=== PATIENT | male | born 1985 | race Caucasian/White ===

== ENCOUNTER 2018-03-25 12:00 | Outpatient (CLI) | payer OTHER ==
[~2018-03-25] VITALS: Ht 185.4 cm; Wt 129.3 kg
[~2018-03-25 12:00] MED LIST: LSNP10T
[2018-03-25] MEDS ORDERED: FEXO1TAB43 PO (12:06)
[2018-03-25] MEDS ORDERED: FLUT9.9S NSEACH (12:06)
[2018-03-25] MEDS ORDERED: LISI-552 PO (12:06)
== END 2018-03-25 14:00 | disposition home or self-care (01) ==
LOC: PREOP 12:00
PROVIDERS: ATTEND Surgery
DX: Z01.818 Encounter for other preprocedural examination (principal)

== ENCOUNTER 2018-03-30 11:46 | Day surgery (SDC) | payer OTHER ==
[~2018-03-30] VITALS: Ht 185.4 cm; Wt 129.3 kg
[~2018-03-30 11:46] MED LIST changes: +FEXO1TAB43 PO; +FLUT9.9S NSEACH; +LISI-552 PO
--- OUTSIDE RECORDS SUMMARY | 2018-03-30 11:51 | XMS REPORT ---
Author Author MATY CARABALLO Organization [facility] Address [address] [place] [address] Care Team Providers Care Tobacco Flavorer Name Role Phone MATY CARABALLO Unavailable PROBLEMS Type Condition ICD9-CM Code ZVX08-LK Code Onset Dates Condition Status SNOMED Code Problem Seasonal allergic rhinitis due to pollen J30.1 Active 17051037 Problem Primary hypertension I10 Active [id number] ALLERGIES No Known Allergies ENCOUNTERS Encounter Location Date Diagnosis [facility] [id number] [place] [phone] Feb, Rectal bleeding K62.5 ; Primary hypertension I10 and Seasonal allergic rhinitis due to pollen J30.1 [facility] [id number] [place] [phone] Mar, [facility] [id number] [place] [phone] Jun, IMMUNIZATIONS No Known Immunizations SOCIAL HISTORY Never Assessed REASON FOR VISIT Rectal bleeding-CAMI bolaños, had surgery and was prescribe some medicine and have been having bleeding from the rectum since then., every since his surery his blood pressure has been high PLAN OF CARE Activity Details Follow Up prn Reason: VITAL SIGNS Height 6 ft 2 in in 2018-03-05 Weight 288.6 lbs 2018-03-05 Temperature 98.2 degrees Fahrenheit 2018-03-05 Heart Rate 82 bpm 2018-03-05 Respiratory Rate 18 2018-03-05 Oximetry on room air:97 % 2018-03-05 BMI 37.05 kg/m2 2018-03-05 Blood pressure systolic 122 mmHg 2018-03-05 Blood pressure diastolic 102 mmHg 2018-03-05 MEDICATIONS Medication Instructions Dosage Frequency Start Date End Date Duration Status Proctofoam HC 1-1 % Rectal Four times a day 1 application as needed 6h Feb, Mar, 30 days Active Lisinopril 20 MG Orally Once a day 1 tablet 24h 30 day(s) Active Fexofenadine-Pseudoephed ER 60-120 MG Orally Twice a day 1 tablet as needed 12h 13 Feb, 2018 12 May, 2018 30 days Active RESULTS Name Result Date Reference Range HEMOGLOBIN (IN HOUSE) 2018-03-05 HEMOGLOBIN 16.7 11.5 - 16 gm/dL Lot # [id number] Exp date 08/07/2018 PROCEDURES Procedure Date Ordered Result Body Site HEMOGLOBIN Mar 05, 2018 INSTRUCTIONS MEDICATIONS ADMINISTERED No Known Medications MEDICAL (GENERAL) HISTORY Type Description Date Medical History shoulder surgery both Surgical History both shoulder 2017 Hospitalization History dot
[2018-03-30] MEDS ORDERED: LACTATED RINGERS 1,000 ML IV STA (11:53)
[2018-03-30 12:00] VITALS: BP 134/92
--- NOTE | 2018-03-30 12:21 | Progress Note-Pre Operative ---
Pre-Operative Progress Note H&P Reviewed The H&P was reviewed, patient examined and no changes noted. Time Seen by Provider: 12:16 Date H&P Reviewed: Mar 30, 2018 Time H&P Reviewed: 12:18 Pre-Operative Diagnosis: Rectal Bleed DELFINO ACEVES DO Mar 30, 2018 12:21
[2018-03-30] MEDS ORDERED: PROPOFOL INJECTION 0 ML IV ONE (12:34)
[2018-03-30] MEDS ORDERED: MIDAZOLAM 5 MG/5 ML (VERSED) VIAL ONE (12:34)
[2018-03-30] MEDS ORDERED: ONDANSETRON 4 MG/2 ML (SDV) Z0FRAN ONE (12:42)
[2018-03-30] MEDS ORDERED: FAMOTIDINE 20MG/2ML IV (PEPCID) ONE (12:42)
[2018-03-30] MEDS ORDERED: proPOfol 200 MG/20 ML (DIPRIVAN) VIAL IV ONE (13:04)
--- NOTE | 2018-03-30 13:40 | Progress Note-Post Operative ---
Post-Operative Progess Note Surgeon (s)/Driver Guide (s) Surgeon DELFINO ACEVES DO Driver Guide: Jhony Soriano, MS III Pre-Operative Diagnosis Rectal Bleed Post-Operative Diagnosis Same plus Internal Hemorrhoids Procedure & Operative Findings Date of Procedure 03/30/18 Procedure Performed/Findings Colonoscopy Anesthesia Type IV sedation by VENEER REDRIER Estimated Blood Loss Estimated blood loss (mL): none Specimens/Packing Specimens Removed none DELFINO ACEVES DO Mar 30, 2018 13:40
--- NOTE | 2018-03-30 13:42 | Endoscopy Discharge Instruct ---
Endo Procedure/Findings Findings 1.: Internal Hemorrhoids Discharge Instructions - Activity: You might feel a little sleepy until tomorrow. This is due to the medicine you received to relax you. Until tomorrow, you should: NOT drive a car, operate machinery or power tools. NOT drink any alcoholic beverages. NOT make any important decisions or sign importortant papers. Do not return to work until tomorrow, unless otherwise instructed. Resume previous activities tomorrow. Diet: Start by taking liquids. If you tolerate liquids, advance to solid food. Make appt for one week. Notify Physician - If you experience excessive bleeding, unusual abdominal pain, fever, or chest pain, contact your doctor immediately. Follow-Up: - I have received and understand the above instructions and will call my doctor if I have any further questions. Patient Signature Date Nurse Signature Other (Relationship) DELFINO ACEVES DO Mar 30, 2018 13:41
[2018-03-30 14:15] VITALS: BP 127/78
[2018-03-30 14:39] VITALS: BP 124/71
[2018-03-30 14:55] VITALS: BP 124/71
--- NOTE | 2018-03-30 21:13 | OPERATIVE REPORT ---
DATE OF SERVICE: 03/30/2018 PREOPERATIVE DIAGNOSIS: Rectal bleed. POSTOPERATIVE DIAGNOSES: Rectal bleed and internal hemorrhoids. PROCEDURE: Colonoscopy. SURGEON: Sam Colvin DO SPRING BENDER: Jhony Benoit, medical student level 3. ANESTHESIA: IV sedation by the CLINICAL LABORATORY TECHNICIAN. SPECIMENS: None. BLOOD LOSS: None. FLUIDS: Per anesthesia. POSTOPERATIVE CONDITION: Stable. INDICATION FOR PROCEDURE: The patient is a 32-year-old male, who has been having some rectal bleeding and needs a workup. FINDINGS: The patient did have large vein running through the rectum and some internal hemorrhoids. He did not have any fissures, did not see any obvious pathology. PROCEDURE NOTE: After informed consent was obtained, the patient was brought to the endoscopy suite and placed on the bed in left lateral decubitus position. He was administered IV sedation by the CLINICAL LABORATORY TECHNICIAN, who then monitored his vitals the entire time, heart rate, blood pressure, pulse ox and the scope was inserted, pushed all the way about 150 cm, able to get to the cecum. Took a picture of appendiceal orifice, noted the ileocecal valve and then slowly withdrew the scope insufflating to look circumferentially at the tyson looking at the cecum, up the ascending colon to the hepatic flexure, then down the transverse colon to the the splenic flexure, into the descending colon and down in the sigmoid and finally into the rectum. In the rectum, I saw a large vein almost a varicosity, took a picture of this. There was a possibility this has bled before. He also had some grade I to II internal hemorrhoids, took a picture of this and then looked, I did not see any anal fissure, just hemorrhoids, removed the scope. The patient tolerated the procedure and he was recovered in the endoscopy suite. Job ID: [id number] DocumentID: [id number] Dictated Date: 03/30/2018 18:10:25 Alarm Technician Date: 03/30/2018 21:12:19 Dictated By: SAM COLVIN DO
== END 2018-03-30 14:55 | disposition home or self-care (01) ==
LOC: ENDO 11:46
PROVIDERS: ATTEND Surgery
DX: K64.1 Second degree hemorrhoids (principal); K62.5 Hemorrhage of anus and rectum; I10 Essential (primary) hypertension; E66.9 Obesity, unspecified; Z79.899 Other long term (current) drug therapy; Z68.37 Body mass index [BMI] 37.0-37.9, adult

== ENCOUNTER 2018-08-26 16:23 | Emergency (ER) | payer MEDICAID, OTHER ==
[~2018-08-26] VITALS: Ht 185.4 cm; Wt 129.3 kg
[2018-08-26] MEDS ORDERED: CYCL5TAB (16:47)
[2018-08-26] MEDS ORDERED: ASPIRIN 81 MG CHEW (CHILDREN'S ASA) PO ONE (17:30)
--- NOTE | 2018-08-26 17:36 | ED Chest Pain ---
General Chief Complaint: Chest Pain Stated Complaint: CHEST PAIN Nursing Triage Note: AMB TO ROOM WITH C/O CHEST PAIN ONSET LAST NIGHT REPORTS THAT AT [facility] DID NOT FEEL WELL AND WHEN HE WENT TO BED LATER ONSET OF PAIN IN THE MIDDLE OF CHEST LASTED 1 HR. Nursing Sepsis Screen: No Definite Risk Source: patient Exam Limitations: no limitations History of Present Illness Date Seen by Provider: Aug 26, 2018 Time Seen by Provider: 17:15 Initial Comments Here with onset of central chest discomfort and tightness last night. Lasted for a few hours and was associated with fast heartbeat and elevated blood pressure. That resolved at about 2 AM and has been resolved today. He followed up with his doctor as he is had some medication changes recently. His doctor was not evidence of the seventh to the quick care clinic at the [facility]. On telling the story, they sent him here for evaluation related to chest pain. He has not had any chest pain or discomfort since 2 AM and has had no other problems. Patient did have upper respiratory infection last week that has subsequently resolved. Timing/Duration: 1-3 hours, gone now Severity/Quality: tightness Location: central Radiation: no radiation Activities at Onset: rest, sleep Prior CP/Workup: no prior cardiac workup ASA po JOINTER MACHINE: No NTG SL JOINTER MACHINE: No Associated Symptoms: No back pain, No fever/chills; shortness of breath; No weakness Allergies and Home Medications Allergies Coded Allergies: No Known Drug Allergies (Verified , 03/30/18) Home Medications Fexofenadine/Pseudoephedrine 1 Each Tab.er.24h, 1 EACH PO DAILY, (Reported) Fluticasone Propionate 9.9 Ml Anderson.susp, 1 SPRAY NSEACH DAILY, (Reported) 1 SPRAY EACH NARE DAILY Lisinopril 20 Mg Tablet, 20 MG PO DAILY, (Reported) Patient Home Medication List Home Medication List Reviewed: Yes Review of Systems Review of Systems Constitutional: see HPI; No chills, No fever EENTM: No Symptoms Reported Respiratory: See HPI, Shortness of Air; Denies Wheezing Cardiovascular: Denies Chest Pain; Palpitations Gastrointestinal: Denies Abdominal Pain, Denies Diarrhea, Denies Nausea, Denies Vomiting Genitourinary: No Symptoms Reported Musculoskeletal: no symptoms reported All Other Systems Reviewed Negative Unless Noted: Yes Past Clgxlrq-[id number]-Rgrslv Hx Past Med/Social Hx: Reviewed Nursing Past Med/Soc Hx Patient Social History Alcohol Use: Denies Use Smoking Status: Never a Smoker Recent Foreign Travel: No Contact w/Someone Who Travel: No Recent Infectious Disease Expo: No Recent Hopitalizations: No Seasonal Allergies Seasonal Allergies: Yes Past Medical History Surgeries: Yes (ARM AND SHOULDER FROM FRACTURE, INGROWN TOENAILS) Respiratory: No Cardiac: Yes Hypertension Neurological: No (heat strokes) Gastrointestinal: No (rectal bleeding) Musculoskeletal: No Endocrine: No Cancer: No Psychosocial: No Integumentary: No Blood Disorders: No Family Medical History Reviewed Nursing Family Hx Physical Exam Vital Signs Vital Signs - First Documented 08/26/18 16:26 Temp 98.0 Pulse 100 Resp 18 B/P (MAP) 150/100 (117) Pulse Ox 96 O2 Delivery Room Air Capillary Refill : Less Than 3 Seconds Height, Weight, BMI Height: 6'1.00" Weight: 285lbs. 0.0oz. 129.684281wc; 37.6 BMI Method:Stated General Appearance: No Apparent Distress, WD/WN HEENT: PERRL/EOMI, Pharynx Normal Neck: Non Tender, Supple Respiratory: Lungs Clear, Normal Breath Sounds Cardiovascular: Regular Rate, Rhythm, No Murmur Gastrointestinal: Non Tender, Soft Extremity: Normal Range of Motion, Non Tender Neurologic/Psychiatric: Alert, Oriented x3 Skin: Normal Color, Warm/Dry Progress/Results/Core Measures Results/Orders Lab Results Laboratory Tests Test 08/26/18 16:40 Range/Units White Blood Count 7.3 4.3-11.0 10^3/uL Red Blood Count 4.95 4.35-5.85 10^6/uL Hemoglobin 15.7 13.3-17.7 G/DL Hematocrit 43 40-54 % Mean Corpuscular Volume 88 80-99 FL Mean Corpuscular Hemoglobin 32 25-34 PG Mean Corpuscular Hemoglobin Concent 36 32-36 G/DL Red Cell Distribution Width 12.7 10.0-14.5 % Platelet Count 171 130-400 10^3/uL Mean Platelet Volume 10.9 H 7.4-10.4 FL Neutrophils (%) (Auto) 62 42-75 % Lymphocytes (%) (Auto) 31 12-44 % Monocytes (%) (Auto) 5 0-12 % Eosinophils (%) (Auto) 2 0-10 % Basophils (%) (Auto) 1 0-10 % Neutrophils # (Auto) 4.5 1.8-7.8 X 10^3 Lymphocytes # (Auto) 2.2 1.0-4.0 X 10^3 Monocytes # (Auto) 0.4 0.0-1.0 X 10^3 Eosinophils # (Auto) 0.1 0.0-0.3 10^3/uL Basophils # (Auto) 0.0 0.0-0.1 10^3/uL Prothrombin Time 13.0 12.2-14.7 SEC INR Comment 1.0 0.8-1.4 Activated Partial Thromboplast Time 30 24-35 SEC D-Dimer 0.27 0.00-0.49 UG/ML Sodium Level 138 135-145 MMOL/L Potassium Level 4.5 3.6-5.0 MMOL/L Chloride Level 107 98-107 MMOL/L Carbon Dioxide Level 19 L 21-32 MMOL/L Anion Gap 12 5-14 MMOL/L Blood Urea Nitrogen 17 7-18 MG/DL Creatinine 1.38 H 0.60-1.30 MG/DL Estimat Glomerular Filtration Rate 59 BUN/Creatinine Ratio 12 Glucose Level 106 H 70-105 MG/DL Calcium Level 10.0 8.5-10.1 MG/DL Corrected Calcium 8.5-10.1 MG/DL Magnesium Level 2.7 H 1.8-2.4 MG/DL Total Bilirubin 0.3 0.1-1.0 MG/DL Aspartate Amino Transf (AST/SGOT) 37 H 5-34 U/L Alanine Aminotransferase (ALT/SGPT) 36 0-55 U/L Alkaline Phosphatase 57 40-136 U/L Myoglobin 66.8 10.0-92.0 NG/ML Troponin I < 0.028 <0.028 NG/ML Total Protein 7.9 6.4-8.2 GM/DL Albumin 4.7 H 3.2-4.5 GM/DL My Orders Orders - LEYDI GOFF MD Cbc With Automated Diff (08/26/18 17:29) Magnesium (08/26/18 17:29) Chest 1 View, Ap/Pa Only (08/26/18 17:29) Ekg Tracing (08/26/18 17:29) Cardiac Profile 1 (08/26/18 17:29) Comprehensive Metabolic Panel (08/26/18 17:29) Myoglobin Serum (08/26/18 17:29) Protime With Inr (08/26/18 17:29) Partial Thromboplastin Time (08/26/18 17:29) Monitor-Rhythm Ecg Trace Only (08/26/18 17:29) Lipid Panel (08/27/18 06:00) Aspirin Chewable Tablet (Baby Aspirin Ch (08/26/18 17:30) Saline Lock/Iv-Start (08/26/18 17:29) Fibrin Degradation Products (08/26/18 17:29) Medications Given in ED Current Medications Medications Dose Ordered Sig/Gina Route Start Time Stop Time Status Last Admin Dose Admin Aspirin 324 mg ONCE ONCE PO 08/26/18 17:30 08/26/18 17:31 DC 08/26/18 17:33 324 MG Vital Signs/I&O 08/26/18 08/26/18 16:26 18:03 Temp 98.0 Pulse 100 107 Resp 18 18 B/P (MAP) 150/100 (117) 148/96 (113) Pulse Ox 96 96 O2 Delivery Room Air Room Air Blood Pressure Mean: 117 Progress Progress Note : Progress Note Seen and evaluated. IV, labs, EKG and chest x-ray ordered. ASA 324 mg by mouth. Monitor patient. 1822: No acute findings on exam, labs, EKG or chest x-ray. Overall I believe he is safe for discharge. He does have appointment with his doctor in the morning at 9 AM and he will keep that appointment. I will send a copy of the chart and found. There is probably room for adjustments on blood pressure medicines. I did discuss with the patient for returning if he is having the palpitations so we can determine if there is an underlying dysrhythmia. Discharged home with return precautions. Patient verbalize understanding instructions and agreement with plan. Initial ECG Impression Date: Aug 26, 2018 Initial ECG Impression Time: 16:35 Initial ECG Rate: 96 Initial ECG Rhythm: Normal Sinus Comment Sinus rhythm with normal axis. No evidence of ST elevation NV. Similar to 24 April 2009. Interpreted by me. Diagnostic Imaging Diagonstic Imaging: Xray Plain Films/CT/US/NM/MRI: chest Comments [facility] [place], [place] NAME: GRACE STALLWORTH MED REC#: [id number] PT STATUS: REG ER : 1985 PHYSICIAN: LEYDI GOFF MD ADMIT DATE: 08/26/18/ER Draft Date of Exam:08/26/18 CHEST 1 VIEW, AP/PA ONLY INDICATION: Chest pain. FINDINGS: The lungs are clear. The heart and vessels are normal. There is no effusion or pneumothorax. IMPRESSION: No acute appearing abnormality. Dictated on workstation # [id number] Dict: 08/26/18 1801 Trans: 08/26/18 1805 [id number] Interpreted by: SOSA CHAVEZ Electronically signed by: Departure Impression Primary Impression: Chest pain Qualified Codes: R07.9 - Chest pain, unspecified Additional Impression: Labile blood pressure Disposition: 01 HOME, SELF-CARE Condition: Improved Departure-Patient Inst. Decision time for Depature: 18:26 Referrals: [facility] [place] ([place]) Primary Care Physician Patient Instructions: Chest Pain (DC) Add. Discharge Instructions: All discharge instructions reviewed with patient and/or family. Voiced understanding. Continue medications as previously prescribed. Follow-up with your Dr. in the morning at 9 AM as scheduled. Return for worse pain, fever, vomiting, weakness, breathing problems or other concerns as needed. If you're having chest pain or palpitations, please return to the emergency department for evaluation at that time so we can evaluate for abnormal heart rhythm. Copy Copies To 1: AUGUST MICHELLE MD, TIMOTHY D MD Aug 26, 2018 17:36
[2018-08-26 17:40] LABS: BASOPHILS % (AUTO) 1 % (0-10); EOSINOPHILS # (AUTO) 0.1 10^3/uL (0.0-0.3); EOSINOPHILS % (AUTO) 2 % (0-10); HEMATOCRIT 43 % (40-54); HEMOGLOBIN 15.7 G/DL (13.3-17.7); LYMPHOCYTES # (AUTO) 2.2 X 10^3 (1.0-4.0); LYMPHOCYTES % (AUTO) 31 % (12-44); MEAN CORPUSCULAR HEMOGLOBIN 32 PG (25-34); MEAN CORPUSCULAR HGB CONC 36 G/DL (32-36); MEAN CORPUSCULAR VOLUME 88 FL (80-99); MEAN PLATELET VOLUME 10.9 FL (7.4-10.4); MONOCYTES # (AUTO) 0.4 X 10^3 (0.0-1.0); MONOCYTES % (AUTO) 5 % (0-12); NEUTROPHILS # (AUTO) 4.5 X 10^3 (1.8-7.8); NEUTROPHILS % (AUTO) 62 % (42-75); PLATELET COUNT 171 10^3/uL (130-400); RED CELL DISTRIBUTION WIDTH 12.7 % (10.0-14.5); WHITE BLOOD COUNT 7.3 10^3/uL (4.3-11.0)
[2018-08-26 17:55] LABS: ALANINE AMINOTRANSFERASE 36 U/L (0-55); ALBUMIN 4.7 GM/DL (3.2-4.5); ALKALINE PHOSPHATASE 57 U/L (40-136); BILIRUBIN,TOTAL 0.3 MG/DL (0.1-1.0); BUN/CREATININE RATIO 12; CARBON DIOXIDE 19 MMOL/L (21-32); CHLORIDE 107 MMOL/L (98-107); CREATININE SERUM 1.38 MG/DL (0.60-1.30); GFR ESTIMATED 59; GLUCOSE 106 MG/DL (70-105); MAGNESIUM 2.7 MG/DL (1.8-2.4); POTASSIUM 4.5 MMOL/L (3.6-5.0); SODIUM 138 MMOL/L (135-145); TOTAL PROTEIN 7.9 GM/DL (6.4-8.2)
[2018-08-26 18:02] LABS: MYOGLOBIN SERUM 66.8 NG/ML (10.0-92.0)
[2018-08-26 18:03] VITALS: BP 148/96
--- NOTE | 2018-08-26 18:06 | Diagnostic Imaging Report ---
INDICATION: Chest pain. FINDINGS: The lungs are clear. The heart and vessels are normal. There is no effusion or pneumothorax. IMPRESSION: No acute appearing abnormality. Dictated by: Dictated on workstation # [id number]
[2018-08-26 18:37] VITALS: BP 134/92
== END 2018-08-26 18:37 | disposition home or self-care (01) ==
LOC: EDUNIT# 16:23 → ER 16:25
DX: R07.89 Other chest pain (principal); I10 Essential (primary) hypertension; Z87.19 Personal history of other diseases of the digestive system; Z79.51 Long term (current) use of inhaled steroids
CPT/HCPCS: 36415; 71045; 80053; 83735; 83874; 84484; 85025; 85379; 85610; 85730; 93005; 93041

== ENCOUNTER → 2019-01-29 | Outpatient (CLI) | payer MEDICAID ==
[~2019-01-29] MED LIST changes: +CYCL5TAB
[2019-01-29 14:38] LABS: BASOPHILS # (AUTO) 0.1 10^3/uL (0.0-0.1); BASOPHILS % (AUTO) 1 % (0-10); EOSINOPHILS # (AUTO) 0.2 10^3/uL (0.0-0.3); EOSINOPHILS % (AUTO) 3 % (0-10); HEMATOCRIT 44 % (40-54); HEMOGLOBIN 15.6 G/DL (13.3-17.7); LYMPHOCYTES # (AUTO) 2.2 X 10^3 (1.0-4.0); LYMPHOCYTES % (AUTO) 31 % (12-44); MEAN CORPUSCULAR HEMOGLOBIN 32 PG (25-34); MEAN CORPUSCULAR HGB CONC 36 G/DL (32-36); MEAN CORPUSCULAR VOLUME 89 FL (80-99); MEAN PLATELET VOLUME 9.7 FL (7.4-10.4); MONOCYTES # (AUTO) 0.5 X 10^3 (0.0-1.0); MONOCYTES % (AUTO) 7 % (0-12); NEUTROPHILS # (AUTO) 4.2 X 10^3 (1.8-7.8); NEUTROPHILS % (AUTO) 58 % (42-75); PLATELET COUNT 259 10^3/uL (130-400); RED CELL DISTRIBUTION WIDTH 13.2 % (10.0-14.5); WHITE BLOOD COUNT 7.2 10^3/uL (4.3-11.0)
--- NOTE | 2019-01-29 17:58 | Diagnostic Imaging Report ---
INDICATION: Cough. TIME OF EXAM: 2:39 p.m. COMPARISON: Correlation is made with prior chest from 08/26/2018. FINDINGS: Heart size is normal. Lungs are free of acute infiltrates. No effusion or pneumothorax is seen. The pulmonary vascularity is normal. IMPRESSION: No acute cardiopulmonary process is detected. Dictated by: Dictated on workstation # [id number]
== END ==
LOC: LAB 14:23
PROVIDERS: ATTEND Nurse Practitioner Family
DX: R05 Cough (principal)
CPT/HCPCS: 36415; 71046; 85025

== ENCOUNTER → 2019-02-05 | Outpatient (CLI) | payer MEDICAID ==
[~2019-02-05] MED LIST changes: +HOLD METFORMIN - RECEIVED CONTRAST 20 ML VIAL IV SCH; +IOHEXOL 350 MG/ML 100 ML (OMNIPAQUE 350) VIAL IV ONE; +NS 100 ML (IVPB) BAG IV ONE
[2019-02-05 13:53] LABS: BUN/CREATININE RATIO 10; CALCIUM 9.3 MG/DL (8.5-10.1); CARBON DIOXIDE 25 MMOL/L (21-32); CHLORIDE 107 MMOL/L (98-107); CREATININE SERUM 1.24 MG/DL (0.60-1.30); GFR ESTIMATED > 60; GLUCOSE 91 MG/DL (70-105); POTASSIUM 4.1 MMOL/L (3.6-5.0); SODIUM 140 MMOL/L (135-145)
--- NOTE | 2019-02-05 14:42 | Diagnostic Imaging Report ---
PROCEDURE: CT chest with contrast only. TECHNIQUE: Multiple contiguous axial images were obtained through the chest after administration of intravenous contrast. Auto Exposure Controls were utilized during the CT exam to meet ALARA standards for radiation dose reduction. INDICATION: Coughing up blood for five weeks. COMPARISON: No prior CT chest studies are available for comparison. FINDINGS: No axillary lymphadenopathy is detected. No hilar or mediastinal lymphadenopathy is identified. No pericardial or pleural fluid is detected. The central airways appear to be patent. Pulmonary parenchymal evaluation shows a tiny subpleural nodule in the right upper lobe laterally. The lungs are otherwise clear. No infiltrates are seen. Upper abdomen does show some atrophy of the right kidney; however, this is only partially included on this exam. IMPRESSION: Essentially unremarkable CT of the chest. No thoracic lymphadenopathy or pulmonary parenchymal mass or infiltrate is detected. Dictated by: Dictated on workstation # [id number]
== END ==
LOC: RAD 13:23
PROVIDERS: ATTEND Pediatrics
DX: R04.2 Hemoptysis (principal); R06.02 Shortness of breath
CPT/HCPCS: 36415; 71260; 80048

== ENCOUNTER → 2019-11-29 | Outpatient (CLI) | payer MEDICAID, OTHER ==
[~2019-11-29] MED LIST changes: -HOLD METFORMIN - RECEIVED CONTRAST 20 ML VIAL IV SCH; -IOHEXOL 350 MG/ML 100 ML (OMNIPAQUE 350) VIAL IV ONE; -NS 100 ML (IVPB) BAG IV ONE
--- NOTE | 2019-11-29 09:01 | Diagnostic Imaging Report ---
PROCEDURE: CT pelvis without contrast. TECHNIQUE: Multiple contiguous axial images were obtained through the pelvis without the use of intravenous contrast. Sagittal and coronal reformations were performed. Auto Exposure Controls were utilized during the CT exam to meet ALARA standards for radiation dose reduction. INDICATION: Pain, weakness, and numbness to the right hip and leg for 2 years. Visualized bowel loops in the pelvis appear to be normal caliber. No inflammatory process is detected. No free fluid is identified. No definite iliac or inguinal lymphadenopathy is seen. The femoral acetabular alignment is normal bilaterally. Both femoral heads and necks appear to be intact and no fractures are seen. Superior and inferior pubic rami are intact. IMPRESSION: Unremarkable CT of the pelvis. No acute feature is detected. Dictated by: Dictated on workstation # [id number]
== END ==
LOC: RAD 07:16
PROVIDERS: ATTEND Specialist
DX: M46.1 Sacroiliitis, not elsewhere classified (principal)
CPT/HCPCS: 72192

== ENCOUNTER 2020-12-19 11:00 | Outpatient (RCR) | payer OTHER ==
[~2020-12-19 11:00] MED LIST changes: -LISI-552 PO; +LISI20TA26 PO
== END 2020-12-25 | disposition home or self-care (01) ==
PROVIDERS: ATTEND Specialist
DX: M46.1 Sacroiliitis, not elsewhere classified (principal); M43.28 Fusion of spine, sacral and sacrococcygeal region

== ENCOUNTER → 2021-02-20 | Outpatient (CLI) | payer MEDICAID, OTHER | LOC: LAB 11:36 | PROVIDERS: ATTEND Pediatrics | DX: M10.9 Gout, unspecified (principal); Z20.822 Contact with and (suspected) exposure to COVID-19 | CPT/HCPCS: 36415; 84550; 86769 ==

== ENCOUNTER 2021-03-22 08:43 | Outpatient (RCR) | payer OTHER | END 2021-03-28 | disposition home or self-care (01) | PROVIDERS: ATTEND Specialist | DX: M46.1 Sacroiliitis, not elsewhere classified (principal); Z98.1 Arthrodesis status; I10 Essential (primary) hypertension | CPT/HCPCS: 97110; 97140; G0283 ==

== ENCOUNTER 2021-05-09 09:49 | Outpatient (RCR) | payer MEDICAID, OTHER | END 2021-06-22 | disposition home or self-care (01) | PROVIDERS: ATTEND Specialist | DX: M46.1 Sacroiliitis, not elsewhere classified (principal); I10 Essential (primary) hypertension; Z98.1 Arthrodesis status ==